=== PATIENT | female | born 1985 | race Two or more races ===

== ENCOUNTER 2020-11-04 14:57 | Emergency (ER) | payer MEDICAID, OTHER ==
[~2020-11-04] VITALS: Ht 154.9 cm; Wt 71.2 kg
[2020-11-04 16:18] LABS: Urine Bacteria FEW /hpf (None Seen); Urine Blood Negative /uL (Negative); Urine Hyaline Cast FEW /lpf (0 - 2); Urine Mucus FEW (None Seen); Urine Specific Gravity 1.025 (1.001-1.035); Urine WBC 4 /hpf (0 - 5)
[2020-11-04 18:00] VITALS: BP 143/99
[2020-11-04] MEDS ORDERED: methylPREDNISolone SOD SUCC 125 MG/2 ML VL IV ONE (18:30)
[2020-11-04] MEDS ORDERED: diphenhdrAMINE HCL 50 MG/1 ML VL IM ONE (18:30)
== END 2020-11-04 18:34 | disposition home or self-care (01) ==
LOC: ER 14:57
DX: N39.0 Urinary tract infection, site not specified (principal); L25.9 Unspecified contact dermatitis, unspecified cause
CPT/HCPCS: 81001; 96372; 96374; 99283; J1200; J2930

== ENCOUNTER 2022-12-09 17:49 | Emergency (ER) | payer MEDICAID ==
[~2022-12-09] VITALS: Ht 154.9 cm; Wt 60.4 kg
[2022-12-09 18:53] LABS: Basophils # (auto) 0 10 ^3/uL (0-0.2); Eosinophils # (auto) 0.1 10 ^3/uL (0-0.8); Monocytes # (auto) 0.7 10 ^3/uL (0-1.3)
[2022-12-09 18:54] LABS: Alanine Aminotransferase 12 U/L (7-40); Albumin 4.5 g/dL (3.2-4.8); Alkaline Phosphatase 79 U/L (46-116); Anion Gap 6.3 (5-15); Aspartate Aminotransferase < 8 U/L (13-40); BUN/Creatinine Ratio 18.8 (10.0-20.0); Bilirubin, Total 0.3 mg/dL (0.2-1.0); Blood Urea Nitrogen 13 mg/dL (9-23); Calcium 9.6 mg/dL (8.5-10.1); Carbon Dioxide 24.7 mmol/L (20-30); Chloride 104 mmol/L (98-107); Glucose 99 mg/dL (74-106); Sodium 135 mmol/L (136-145); Total Protein 7.8 g/dL (5.7-8.2)
[2022-12-09 18:58] LABS: Basophils % (auto) 0.5 % (0.0-2.0); Eosinophils % (auto) 1.3 % (0.0-7.0); Hematocrit 36.3 % (36.0-46.0); Hemoglobin 12.2 g/dL (12.2-16.2); Lymphocytes # (auto) 1.7 10 ^3/uL (0.4-5.4); Lymphocytes % (auto) 30.8 % (10.0-50.0); Mean Corpuscular Hemoglobin 26.5 pg (28.0-32.0); Mean Corpuscular Hgb Conc. 33.7 g/dL (32.0-36.0); Mean Corpuscular Volume 78.8 fL (80.0-100.0); Monocytes % (auto) 12.3 % (0.0-12.0); Neutrophils % (auto) 55.1 % (37.0-80.0); Nucleated Red Blood Cells % 0.1 %; Red Blood Cells 4.61 10^6/uL (4.0-5.20); Red Cell Distribution Width 16.5 % (11.8-14.3); White Blood Cell 5.5 10^3/uL (4.4-10.8)
[2022-12-09 19:23] LABS: Urine Bacteria FEW /hpf (None Seen); Urine Blood Negative /uL (Negative); Urine Clarity Clear (Clear); Urine Color Yellow (Yellow); Urine Protein, UAD Negative (Negative); Urine Specific Gravity 1.026 (1.001-1.035); Urine Urobilinogen Normal (Negative); Urine WBC <1 /hpf (0 - 5); Urine pH 6.5 (5.0-8.0)
[2022-12-09 22:04] VITALS: BP 149/87; PULSE 79; RESP 18; TEMP 98; O2SAT 98
== END 2022-12-09 22:11 | disposition home or self-care (01) ==
LOC: ER 17:49
DX: O20.0 Threatened abortion (principal); Z3A.01 Less than 8 weeks gestation of pregnancy; Z98.890 Other specified postprocedural states
CPT/HCPCS: 36415; 76801; 80053; 81001; 84702; 85025

== ENCOUNTER 2023-09-05 08:45 | Emergency (ER) | payer MEDICAID ==
[~2023-09-05] VITALS: Ht 152.4 cm; Wt 61.8 kg
[2023-09-05 09:12] VITALS: BP 148/88; PULSE 98; RESP 18; O2SAT 98
[2023-09-05 10:35] VITALS: TEMP 98
[2023-09-05] MEDS: ACETAMINOPHEN 500 MG TAB PO ONE (10:35)
[2023-09-05] MEDS ORDERED: AMOX875T3 PO (10:42)
[2023-09-05] MEDS ORDERED: CYCL-839 PO (10:42)
== END 2023-09-05 10:47 | disposition home or self-care (01) ==
LOC: ER 08:45
DX: R68.84 Jaw pain (principal); H66.92 Otitis media, unspecified, left ear
CPT/HCPCS: 70110

== ENCOUNTER 2024-07-15 17:06 | Emergency (ER) | payer MEDICAID ==
[~2024-07-15] VITALS: Ht 154.9 cm; Wt 61.8 kg
[~2024-07-15 17:06] MED LIST: AMOX875T3 PO; CYCL-839 PO
[2024-07-15 18:40] VITALS: BP 143/92; PULSE 103; RESP 18; TEMP 98.7; O2SAT 98
--- NOTE | 2024-07-15 18:46 | ED.PDOC ---
Eye-HPI HPI Comments This is a 38-year-old female chief complaint BILateral ear pain since thursday rt >left with swelling under ear rt cuirrently taking abx on 2nd round. Placed on antibiotics by urgent care. Denies hearing changes, fevers, chills, nausea or vomiting reports no dizziness chest pain shortness breath or difficulty breathing. Chief Complaint: Earache Time Seen by MD: 17:55 Primary Care Provider: DAIGLE Reviewed Notes: Nurses Notes, Medications, Allergies Allergies: Coded Allergies: Methylprednisolone (Verified Allergy, Intermediate, NAUSEA, 07/15/24) Azithromycin (Verified Allergy, Unknown, 07/15/24) Ceftriaxone (Verified Allergy, Unknown, 07/15/24) No Known Drug Allergy (Verified Allergy, Unknown, 11/04/20) Home Meds Active Scripts Cyclobenzaprine Hcl (Cyclobenzaprine Hcl) 10 Mg Tab, 10 MG PO BID, #20 TAB Prov:ELIJAH MALHOTRA 09/05/23 Amoxicillin Trihydrate (Amoxicillin) 875 Mg Tab, 1 TAB PO BID, #20 TAB Prov:ELIJAH MALHOTRA 09/05/23 Information Source: Patient Mode of Arrival: Ambulatory Past Medical History PAST MEDICAL HISTORY: Denies Surgical History: , Denies all surgeries 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 Family History Family History: Reviewed,noncontributory to illness Social History Smoker: Non-Smoker Alcohol: Denies ETOH Use Drugs: Denies Drug Use Lives In: Home Constitutional: denies: chills, diaphoresis, fatigue, fever, malaise, sweats, weakness, others EENTM: reports: eye pain; denies: blurred vision, double vision, ear bleeding, ear discharge, ear drainage, ear pain, ear ringing, eye redness, hearing loss, mouth pain, mouth swelling, nasal discharge, nose bleeding, nose congestion, nose pain, photophobia, tearing, throat pain, throat swelling, voice changes, others Respiratory: denies: cough, hemoptysis, orthopnea, SOB at rest, shortness of breath, SOB with excertion, stridor, wheezing, others Cardiovascular: denies: chest pain, dizzy spells, diaphoresis, Dyspnea on exertion, edema, irregular heart beat, left arm pain, lightheadedness, palpitations, PND, syncope, others Gastrointestinal: denies: abdomen distended, abdominal pain, blood streaked bowels, constipated, diarrhea, dysphagia, difficulty swallowing, hematemesis, melena, nausea, poor appetite, poor fluid intake, rectal bleeding, rectal pain, vomiting, others Genitourinary: denies: abnormal vagina bleeding, burning, dyspareunia, dysuria, flank pain, frequency, hematuria, incontinence, pain, , vagina discharge, urgency, others Neurological: denies: dizziness, fainting, headache, left sided numbness, left sided weakness, numbness, paresthesia, pre-existing deficit, right sided numbness, right sided weakness, seizure, speech problems, tingling, tremors, weakness, others Musculoskeletal: denies: back pain, gout, joint pain, joint swelling, muscle pain, muscle stiffness, neck pain, others Integumetry: denies: bruises, change in color, change in hair/nails, dryness, laceration, lesions, lumps, rash, wounds, others Allergic/Immunocompromised: denies: Difficulty Healing, Frequent Infections, Hives, Itching, others Hematologic/Lymphatic: reports: swollen glands; denies: anemia, blood clots, easy bleeding, easy bruising, others Endocrine: denies: excessive hunger, excessive sweating, excessive thirst, excessive urination, flushing, intolerance to cold, intolerance to heat, unexpla ined weight gain, unexplained weight loss, others Psychiatric: denies: anxiety, bipolar disorder, depression, hopeless, panic disorder, schizophrenia, sleepless, suicidal, others Physical Exam General Appearance: No Apparent Distress, Normal HEENT: Normal ENT Inspection, Pharynx Normal, TMs Normal Neck: Full Range of Motion, Non-Tender Respiratory: Lungs Clear, No Respiratory Distress, Normal Breath Sounds Cardiovascular: No Edema, No JVD, No Murmur, No Gallop, Normal Peripheral Pulses, Regular Rate/Rhythm Breast Exam: Deferred Gastrointestinal: No Organomegaly, Non Tender, No Pulsatile Mass, Normal Bowel Sounds, Soft Genitalia: Deferred Pelvic: Deferred Rectal: Deferred Extremities: Normal capillary refill, Normal inspection, Normal range of motion, Non-tender, No pedal edema Musculoskeletal : Apperance: Normal Neurologic: Alert, scale technician II-XII nml as Tested, No Motor Deficits, Normal Affect, Normal Mood, No Sensory Deficits Cerebellar Function: Normal Reflexes: Normal Skin: Dry, Normal Color, Warm Lymphatic: Other (Preauricular lymph nodes tenderness no warmth non matted) Was a procedure done? Was a procedure done?: No EENT DIFF Eye: N/A Ear: Cerumen Impaction, Foreign Body, Otitis Externa, Otitis Media, Perforation, Dental, Pharyngitis X-Ray, Labs, Meds, VS Vital Signs Date Time Temp Pulse Resp B/P (MAP) Pulse Ox O2 Delivery O2 Flow Rate FiO2 07/15/24 18:40 98.7 103 18 143/92 (109) 98 98.7 07/15/24 18:40 103 18 98 Room Air 07/15/24 17:30 98.7 103 18 143/92 (109) 98 98.7 X-Ray, Labs, Meds, VS Comment Patient advised to continue and complete the antibiotics prescribed by urgent care. Advised to use warm compresses to her the lymph nodes several times a day. Also advised patient that the lymph nodes may remain for some time up to at least 3 months after infection has resolved. Advised her to obtain a PCP and follow up 2-3 days or urgent care or back here in the ER. Take medications as prescribed side effects discussed. [id number] Tylenol or Motrin as needed for the pain per labeled dosing instructions. ER return precautions given patient indicates understanding agrees with discharge plan of care. Time of 1ST Reevaluation: 18:41 Reevaluation 1ST: Unchanged Patient Education/Counseling: Diagnosis, Treatment, Prognosis, Need For Follow Up Family Education/Counseling: No Family Present Departure 1 Departure Time of Disposition: 19:41 Impression: Primary Impression: Preauricular adenopathy Disposition: 01 HOME / SELF CARE / HOMELESS Condition: Stable Discharged With: Self Critical Care Note Critical Care Time?: No Stability Stability form required: AUBREY Mo Jul 15, 2024 18:46
== END 2024-07-15 19:56 | disposition home or self-care (01) ==
LOC: ER 17:06
DX: Q18.1 Preauricular sinus and cyst (principal); Z88.1 Allergy status to other antibiotic agents
CPT/HCPCS: 36415

== ENCOUNTER 2024-07-17 18:17 | Emergency (ER) | payer MEDICAID ==
[~2024-07-17] VITALS: Ht 154.9 cm; Wt 63.5 kg
--- NOTE | 2024-07-17 18:47 | ED.PDOC ---
History of Present Illness HPI Comments 38-year-old female with no reported PMHx presents with a chief complaint of face pain. Patient states that she started symptoms on Thursday where she was told that she had an ear infection and was given antibiotics. Patient reports that she was told that if she was not getting better to come back to the ER. She reports associated neck pain, facial swelling. She reports chronic history of nystagmus. Patient is currently . Time Seen by MD: 18:24 Primary Care Provider: PILO Burgess Notes: Medications, Allergies Allergies: Coded Allergies: Methylprednisolone (Verified Allergy, Intermediate, NAUSEA, 07/15/24) Azithromycin (Verified Allergy, Unknown, 07/15/24) Ceftriaxone (Verified Allergy, Unknown, 07/15/24) No Known Drug Allergy (Verified Allergy, Unknown, 11/04/20) Home Meds Active Scripts Cyclobenzaprine Hcl (Cyclobenzaprine Hcl) 10 Mg Tab, 10 MG PO BID, #20 TAB Prov:ELIJAH MALHOTRA 09/05/23 Amoxicillin Trihydrate (Amoxicillin) 875 Mg Tab, 1 TAB PO BID, #20 TAB Prov:ELIJAH MALHOTRA 09/05/23 Information Source: Patient Mode of Arrival: Ambulatory Severity: Moderate Timing: Days Duration: Since onset Prehospital treatment: None Vital Signs Vital Signs Date Time Temp Pulse Resp B/P (MAP) Pulse Ox O2 Delivery O2 Flow Rate FiO2 07/17/24 23:45 98.1 07/17/24 21:21 89 19 127/89 (102) 97 Physical Exam General: Awake, alert and oriented. No acute distress. Skin: Skin in warm, dry and intact. Appropriate color for ethnicity. HEENT: The head is normocephalic and atraumatic. Conjunctivae are clear without exudates or hemorrhage. Sclera is non-icteric. EOM are intact. Positive nystagmus. Eyelids are normal in appearance without swelling or lesions. Oral mucosa is pink and moist. Swelling, tenderness anterior to right ear. No overlying skin changes, no erythema, induration, fluctuance. No erythema, bulging of bilateral TMs. No swelling, discharge and bilateral external canals. Neck: The neck is supple with normal range of motion. No neck tenderness. No JVD. Cardiac: Heart rate and rhythm are normal. No murmurs, gallops, or rubs are auscultated. Respiratory: No signs of respiratory distress. Lung sounds are clear in all lobes bilaterally without rales, rhonchi, or wheezes. Abdominal: Abdomen is soft, non-tender without distention. Bowel sounds are present and normoactive in all four quadrants. Extremities: Upper and lower extremities are atraumatic in appearance without deformity or edema. Neurological: The patient is awake, alert and oriented to person, place, and time with normal speech. Speech is clear. There is no facial asymmetry. Psychiatric: Appropriate mood and affect. Good judgement and insight. 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 Was a procedure done?: No Differential Dx Considerations may include: Sialoadenitis, meningitis, migraine, sinusitis, mastoiditis, headache, other X-Ray, Labs, Meds, VS Vital Signs Date Time Temp Pulse Resp B/P (MAP) Pulse Ox O2 Delivery O2 Flow Rate FiO2 07/17/24 23:45 98.1 07/17/24 21:52 98.6 07/17/24 21:21 98.9 89 19 127/89 (102) 97 98.9 07/17/24 18:33 98.7 94 16 146/99 (115) 98 98.7 Lab Test 07/17/24 22:21 07/17/24 18:57 Range/Units Urine Color Light-yellow Yellow Urine Clarity Clear Clear Urine pH 6.0 5.0-9.0 Urine Specific [place] > 1.050 H 1.001-1.035 Urine Protein Negative Negative Urine Ketones Negative Negative Urine Blood Negative Negative /uL Urine Nitrite Negative Negative Urine Bilirubin Negative Negative Urine Urobilinogen Normal Negative mg/dL Urine Leukocyte Esterase Negative Negative /uL Urine RBC <1 0 - 4 /hpf Urine Microscopic WBC 4 0-5 /HPF Urine Squamous Epithelial Cells Few <5 /hpf Urine Bacteria None seen None Seen /hpf Urine Mucus Few None Seen Urine Glucose Normal Normal mg/dL White Blood Count 9.4 4.4-10.8 10^3/uL Red Blood Count 4.74 4.0-5.20 10^6/uL Hemoglobin 13.9 12.2-16.2 g/dL Hematocrit 40.8 36.0-46.0 % Mean Corpuscular Volume 86.0 80.0-100.0 fL Mean Corpuscular Hemoglobin 29.4 28.0-32.0 pg Mean Corpuscular Hemoglobin Concent 34.2 32.0-36.0 g/dL Red Cell Distribution Width 13.3 11.8-14.3 % Platelet Count 314 140-450 10^3/uL Mean Platelet Volume 7.6 6.9-10.8 fL Neutrophils (%) (Auto) 77.8 37.0-80.0 % Lymphocytes (%) (Auto) 15.8 10.0-50.0 % Monocytes (%) (Auto) 5.7 0.0-12.0 % Eosinophils (%) (Auto) 0.4 0.0-7.0 % Basophils (%) (Auto) 0.3 0.0-2.0 % Neutrophils # (Auto) 7.3 1.6-8.6 10 ^3/uL Lymphocytes # (Auto) 1.5 0.4-5.4 10 ^3/uL Monocytes # (Auto) 0.5 0-1.3 10 ^3/uL Eosinophils # (Auto) 0 0-0.8 10 ^3/uL Basophils # (Auto) 0 0-0.2 10 ^3/uL Nucleated Red Blood Cells 0.1 % Sodium Level 137 136-145 mmol/L Potassium Level 3.5 3.5-5.1 mmol/L Chloride Level 104 98-107 mmol/L Carbon Dioxide Level 26 20-31 mmol/L Anion Gap 7 5-15 Blood Urea Nitrogen 11 9-23 mg/dL Creatinine 0.64 0.550-1.02 mg/dL Glomerular Filtration Rate Calc 117 >90 mL/min BUN/Creatinine Ratio 17.2 10.0-20.0 Serum Glucose 105 74-106 mg/dL Calcium Level 9.9 8.7-10.4 mg/dL Total Bilirubin 0.4 0.2-1.0 mg/dL Aspartate Amino Transferase (AST) 16 13-40 U/L Alanine Aminotransferase (ALT) 24 7-40 U/L Alkaline Phosphatase 109 46-116 U/L C-Reactive Protein High Sensitivity 0.21 <1.0 mg/dL Total Protein 8.4 H 5.7-8.2 g/dL Albumin 4.8 3.2-4.8 g/dL Current Medications Medications (Trade) Dose Ordered Sig/Vee Route Start Time Stop Time Status Last Admin Ketorolac Tromethamine (Toradol Injection) 15 mg ONCE ONCE IV 07/17/24 19:00 07/17/24 19:01 DC 07/17/24 21:53 Sodium Chloride 1,000 ml @ 1,000 mls/hr Q1H ONCE IV 07/17/24 19:00 07/17/24 19:59 DC 07/17/24 21:53 Acetaminophen (Tylenol Tablet) 650 mg ONCE ONCE PO 07/17/24 19:00 07/17/24 19:01 DC 07/17/24 21:52 Time of 1ST Reevaluation: 18:54 Reevaluation 1ST: Unchanged Patient Education/Counseling: Need For Follow Up Family Education/Counseling: No Family Present Departure 1 Departure Time of Disposition: 00:50 Impression: Primary Impression: Headache Additional Impression: Lymphadenopathy Disposition: 01 HOME / SELF CARE / HOMELESS Condition: Stable Additional Instructions: IN[employer]IONES DE [place] Urgencias Instrucciones: Blanca atentamente todas las instrucciones proporcionadas en aleksey paquete. Aunque le hayan dado el am[place] del Departamento de Emergencias, esto no significa que tenga un "certificado de buena john". [] Hoy no se cuevas realizado ningn diagnstico definitivo para kita sntomas. Es posible que ests en proceso de desarrollar stef enfermedad grave. Es por eso que debe regresar al servicio de urgencias sin falta si presenta algn sntoma nuevo o que empeora (especialmente si kita sntomas incluyen dolor en el pecho, dificultad para respirar, dolor abdominal, fiebre, dolor de jaspreet, confusin, dificultad para krishna o caminar). Tambin es muy importante que consulte a un mdico de atencin primaria dentro de los prximos 3 a 5 boyer para realizar un seguimiento. Si no puede conseguir stef reynaldo, regrese al servicio de urgencias para stef nueva evaluacin. Dolor de jaspreet: Instrucciones de cuidado Descripcin general Los clair de jaspreet tienen muchas causas posibles. La mayora no son sntoma de un problema ms grave y mejoran por s solos. El tratamiento en casa puede ayudarle a sentirse mejor ms rpido. El mdico lo cuevas examinado cuidadosamente, elizabeth podran surgir problemas ms adelante. Si nota algn problema o sntomas nuevos, busque atencin mdica de inmediato . El seguimiento es fundamental para henao tratamiento y seguridad. Asegrese de programar y acudir a todas kita citas, y llame a henao mdico si tiene algn prob burak. Tambin es recomendable estar al tanto de los resultados de kita pruebas y llevar stef lista de los medicamentos que zion. Physiatrist puedes cuidarte en casa? Descanse en stef habitacin tranquila y oscura hasta que se le pase el dolor de jaspreet. Cierre los ojos e intente relajarse o dormir. No angela la televisin ni blanca. Aplique un valentine fro y hmedo o stef compresa fra sobre la henry dolorida arturo 10 a 20 minutos cada vez. Coloque un valentine fay entre la compresa fra y la piel. Utilice stef toalla tibia y hmeda o stef almohadilla trmica a temperatura baja para relajar los msculos tensos de los hombros y el asia. Pdale a alguien que le masajee suavemente el asia y los hombros. Hilham los analgsicos exactamente arie se lo indiquen. Si el mdico le recet un medicamento para el dolor, tmelo segn lo prescrito. Si no est tomando un analgsico recetado, pregntele a henao mdico si puede blanche gissel de venta dalia. No ignore los sntomas nuevos que se presenten junto con el dolor de jaspreet, arie fiebre, debilidad o entumecimiento, cambios en la visin o confusin. Estos podran ser indicios de un problema ms grave. Para prevenir clair de jaspreet Lleva un diario de tus clair de jaspreet para identificar kita desencadenantes. Evitar los desencadenantes puede ayudarte a prevenirlos. Registra cundo comenz cada dolor, cunto dur y customer service and sales consultant fue (pulstil, sordo, punzante o sordo). Anota cualquier otro sntoma que hayas tenido junto con el dolor de jaspreet, arie nuseas, destellos de samantha o manchas oscuras, o sensibilidad a la samantha brillante o a ruidos chuckie. Anota si el dolor de jaspreet se produjo cerca de tu periodo. Anota cualquier cosa que pudiera haberlo desencadenado, arie ciertos alimentos (chocolate, queso, vino) u olores, humo, samantha brillante, estrs o falta de sueo. Encuentra maneras saludables de lidiar con el estrs. Los clair de jaspreet son ms comunes arturo o liset despus de momentos estresantes. Tmate un tiempo para relajarte antes y despus de hacer algo que te haya causado dolor de jaspreet. Intenta mantener los msculos relajados manteniendo stef buena postura. Revisa la mandbula, la suly, el asia y los hombros para detectar tensin e intenta relajarlos. Al sentarte en un escritorio, cambia de posicin con frecuencia y estrate arturo 30 segundos cada hora. Duerma lo suficiente y fiona ejercicio. Come con regularidad. Perodos prolongados sin comer pueden provocar dolor de ca nik. Limita la cafena evitando beber demasiado caf, t o refrescos. Elizabeth no la dejes de golpe, ya que tambin puede causarte dolor de jaspreet. Reduce la fatiga visual causada por la computadora parpadeando con frecuencia y apartando la vista de la pantalla de vez en cuando. Asegrate de usar gafas adecuadas y de que el monitor est correctamente colocado, a stef distancia de aproximadamente un brazo. Cundo debes pedir ayuda? Llame al 911 en cualquier momento que considere que necesita atencin de emergen yuan. Por ejemplo, llame si: Tienes sntomas de un derrame cerebral. Estos pueden incluir: Entumecimiento repentino, parlisis o debilidad en la suly, el brazo o la pierna, especialmente en un solo lado del cuerpo. Cambios repentinos en la visin. Dificultad repentina para hablar. Confusin repentina o dificultad para comprender afirmaciones sencillas. Problemas repentinos con la marcha o el equilibrio. Un dolor de jaspreet repentino y sam que es diferente a los clair de jaspreet anteriores. Llame a henao mdico ahora o busque atencin mdica inmediata si: Tienes fiebre y rigidez en el asia. Tiene nuseas y vmitos nuevos o no puede retener alimentos o lquidos. Tu dolor de jaspreet empeora mucho. Preste atencin a los cambios en henao john y asegrese de comunicarse con henao mdico si: Kita clair de jaspreet empeoran, ocurren con ms frecuencia o cambian de alguna manera. Tienes nuevos sntomas. Tu orville se ve alterada por tus clair de jaspreet. Por ejemplo, sueles faltar al trabajo, a la escuela o a otras actividades. No mejoras arie esperabas Crditos para el dolor de jaspreet: Instrucciones de cuidado Actualizado al: 3 2023 Autor: Personal de [employer] Junta de revisin clnica Toda la educacin de [employer] es revisada por un equipo que incluye mdicos, enfermeras, profesionales avanzados, dietistas registrados y otros profesionales de la john. Instrucciones de cuidado Los ganglios linfticos son pequeas glndulas con forma de frijol que se encuentran en todo el cuerpo. Ayudan al cuerpo a combatir grmenes e infecciones. La linfadenitis es la inflamacin de un ganglio linftico. Puede ser causada por stef infeccin u otra afeccin. La infeccin suele localizarse en stef parte cercana del cuerpo. Un ejemplo comn son los bultos a ambos lados del asia, debajo de la mandbula, que se vuelven sensibles y ms grandes cuando se tiene un resfriado o dolor de garganta. En ocasiones, el propio ganglio linftico puede estar infectado. Por lo general, los ganglios linfticos inflamados recuperan henao tamao normal sin problemas. El tratamiento, si es necesario, se centra en tratar la causa. Por ejemplo, stef infeccin bacteriana puede tratarse con antibiticos. [place] debera restaurar el tamao normal del ganglio. Stef infeccin viral suele desaparecer por s cisco. En casos excepcionales, es posible que el mdico deba drenar un ganglio muy infectado. El seguimiento es fundamental para henao tratamiento y seguridad. Asegrese de programar y acudir a todas kita citas, y llame a henao mdico si tiene algn problema. Tambin es recomendable estar al tanto de los resultados de kita pruebas y llevar stef lista de los medicamentos que zion. Physiatrist puedes cuidarte en casa? Tenga cuidado con los medicamentos. Si henao mdico le recet antibiticos, tmelos segn las indicaciones. No los deje de blanche solo porque se sienta mejor. Debe completar el tratamiento con antibiticos. Pregntele a henao mdico si puede blanche un analgsico de venta dalia, arie acetaminofn (Tylenol), ibuprofeno (Advil, Motrin) o naproxeno (Aleve). Blanca y siga todas las instrucciones de la etiqueta. Si siente dolor, pruebe con stef compresa tibia. Empape stef toalla o valentine en agua tibia. Escrralo y colquelo sobre la piel afectada. No apriete, drene ni perfore un bulto doloroso. [place] puede irritarlo o inflamarlo, hacer que la infeccin existente se profundice en la piel o causar sangrado intenso. Cundo debes pedir ayuda? Llame a henao mdico ahora o busque atencin mdica inmediata si: Kita ganglios linfticos se agrandan. La henry se enrojece y se siente ms sensible. Tienes fiebre que no desaparece. Preste atencin a los cambios en henao john y asegrese de comunicarse con henao mdico si: No mejoras arie esperabas Crditos para la linfadenitis: Instrucciones de cuidado Actualizado al: 27 2023 Autor: Personal de [employer] Junta de revisin clnica Toda la educacin de [employer] es revisada por un equipo que incluye mdicos, enfermeras, profesionales avanzados, dietistas registrados y otros profesionales de la john. Comments 38-year-old female with bilateral ear pain, headache, lymphadenopathy. Patient is well-appearing, nontoxic. Patient's symptoms improved during the ED observation. Vital signs stable. Lab and imaging results reviewed and are not urgently actionable. Patient is felt stable for discharge home. Patient advised to follow up with primary care provider promptly and return to the emergency department with any new, worsening or concerning symptoms. - I reviewed the following notes from the pt's past medical encounters: ED visit July 09, 2024 The following tests were ordered, and results were reviewed by me: (See diagnostic results section) The following test were independently interpreted by me: N/A Additional information was gathered from interviewing the following independent historians: (N/A) I reviewed and agreed with the following test results read by other providers: N/A I discussed treatments and results with medical personnel and patient. Decision regarding hospitalization or escalation of hospital level of care: Risks and benefits of admission for further treatment of patient's condition was considered however due to patient's stable condition patient will be discharged to follow up closely or return to care for worsening of condition or inability to follow up. Critical Care Note Critical Care Time?: No Stability Stability form required: No Heart Score Heart Score: Heart Score Response (Comments) Value History N/A 0 EKG N/A 0 Age N/A 0 Risk Factors N/A 0 Troponin N/A 0 Total 0 I personally scribed for RONY DELATORRE MD ([email or web address]) on 07/17/24 at 18:47. Electronically submitted by Dago Rand ([email or web address]). RONY DELATORRE MD Jul 17, 2024 18:47
[2024-07-17 19:32] LABS: Basophils # (auto) 0 10 ^3/uL (0-0.2); Basophils % (auto) 0.3 % (0.0-2.0); Eosinophils # (auto) 0 10 ^3/uL (0-0.8); Eosinophils % (auto) 0.4 % (0.0-7.0); Hematocrit 40.8 % (36.0-46.0); Hemoglobin 13.9 g/dL (12.2-16.2); Lymphocytes # (auto) 1.5 10 ^3/uL (0.4-5.4); Lymphocytes % (auto) 15.8 % (10.0-50.0); Mean Corpuscular Hemoglobin 29.4 pg (28.0-32.0); Mean Corpuscular Hgb Conc. 34.2 g/dL (32.0-36.0); Monocytes # (auto) 0.5 10 ^3/uL (0-1.3); Monocytes % (auto) 5.7 % (0.0-12.0); Neutrophils # (auto) 7.3 10 ^3/uL (1.6-8.6); Neutrophils % (auto) 77.8 % (37.0-80.0); Nucleated Red Blood Cells % 0.1 %; Platelet Count (auto) 314 10^3/uL (140-450); Red Blood Cells 4.74 10^6/uL (4.0-5.20); Red Cell Distribution Width 13.3 % (11.8-14.3); White Blood Cell 9.4 10^3/uL (4.4-10.8)
[2024-07-17 19:45] LABS: Alanine Aminotransferase 24 U/L (7-40); Alkaline Phosphatase 109 U/L (46-116); Anion Gap 7 (5-15); Aspartate Aminotransferase 16 U/L (13-40); BUN/Creatinine Ratio 17.2 (10.0-20.0); Blood Urea Nitrogen 11 mg/dL (9-23); CRP High Sensitivity 0.21 mg/dL (<1.0); Calcium 9.9 mg/dL (8.7-10.4); Carbon Dioxide 26 mmol/L (20-31); Chloride 104 mmol/L (98-107); Glucose 105 mg/dL (74-106); Potassium 3.5 mmol/L (3.5-5.1); Sodium 137 mmol/L (136-145)
[2024-07-17 19:46] LABS: Albumin 4.8 g/dL (3.2-4.8); Bilirubin, Total 0.4 mg/dL (0.2-1.0); Total Protein 8.4 g/dL (5.7-8.2)
[2024-07-17 21:21] VITALS: BP 127/89; PULSE 89; RESP 19; O2SAT 97
[2024-07-17] MEDS: IOHEXOL 300 MG/ML 100ML BOTTLE IJ ONE (21:52)
[2024-07-17] MEDS: ACETAMINOPHEN 325 MG TAB PO ONE (21:52)
[2024-07-17] MEDS: KETOROLAC TROMETH 30 MG/ML 1ML VIAL IV ONE (21:53)
[2024-07-17] MEDS: SODIUM CHLORIDE 0.9% 1,000 ML IV ONE (21:53)
[2024-07-17 22:21] LABS: Urine Bacteria None Seen /hpf (None Seen)
[2024-07-17 22:35] LABS: Urine Blood Negative /uL (Negative); Urine Clarity Clear (Clear); Urine Color Light-Yellow (Yellow); Urine Mucus FEW (None Seen); Urine Protein, UAD Negative (Negative); Urine Squamous Epithelial Cell FEW /hpf (<5); Urine Urobilinogen Normal (Negative); Urine WBC 4 /HPF (0-5)
[2024-07-17 22:38] LABS: Urine Specific Gravity > 1.050 (1.001-1.035)
--- NOTE | 2024-07-17 22:46 | DVH ---
Examination: HWOCT CLINICAL INDICATION: B/L ear pain, R facial swelling, MORALES COMPARISON: None. CONTRAST USED: None. TECHNIQUE: The examination was performed obtaining 5 mm slices without contrast. CT scan done accor ding to ALA (As Low as Reasonably Achievable). Multiplanar reconstructions were obtained. FINDINGS: SUPRATENTORIAL BRAIN: CEREBRAL HEMISPHERES: There is no midline shift or mass effect, intra or extra-axial fluid collection s or hemorrhage. PERIVENTRICULAR WHITE MATTER/BASAL GANGLIA: No abnormal areas of altered attenuation within the periv entricular white matter or basal ganglia. POSTERIOR FOSSA: The brainstem is normal and the visualized cerebellar hemispheres are unremarkable. VENTRICULAR SYSTEM: The ventricular system is normal in size. There is no evidence of hydrocephalus o r transependymal flow of cerebrospinal fluid. SKULL BASE AND PARASELLAR REGION: The skull base is normal with no parasellar masses or abnormalities identified. CALVARIUM AND SCALP REGION: No abnormality is seen. PARANASAL SINUSES: No significant inflammatory changes are identified in the paranasal sinuses. IMPRESSION: 1. No parenchymal hemorrhage or acute territorial infarct noted. 2. No acute skull vault or facial bones fracture or dislocation noted. 3. Clinical correlation and further evaluation with MRI brain is recommended for better evaluation a nd to rule out hyperacute infarct. Electronically Signed 07/17/2024 22:44 Kathleen Anguiano
[2024-07-17 23:45] VITALS: TEMP 98.1
--- NOTE | 2024-07-17 23:48 | DVH ---
Examination: [facility] CLINICAL INDICATION: ;B/L ear pain, R facial swelling, MORALES COMPARISON: None. CONTRAST USED: Intravenous. TECHNIQUE: Transaxial Helical CT Scan of the neck has been performed without and with contrast under quiet breathing. Technique for this CT scan was done using principles of ALARA (As Low As Reasonabl y Achievable). FINDINGS: Nasopharynx and Oropharynx: The naso and oropharyngeal air space is normal. The eustachian tube opening, torus tubarius, and fossa of Rosenm�ller are normal and do not show an y mass. Muscles: The pterygoid muscles, masseter, and temporalis muscles are normal. Both sternocleidomastoid muscles are normal. Parapharyngeal Space: The parapharyngeal space shows normal position and density and fat within. Vascular Structures: The carotid and jugular vessels show normal contrast opacification and position . Salivary Glands: Both parotid glands show normal density within. Both submandibular glands are normal. Larynx: The larynx shows normal vocal cord within. No evidence of any supraglottic or infraglottic mass lesion. The paralaryngeal space, pyriform fossa, vallecula, and epiglottis are normal. No obvious mass in the post cricoid region noted. Thyroid: A 10.5 mm nodule is seen at the junction of the left lobe and isthmus of the thyroid, infer iorly. Lymph Nodes: Small bilateral intraparotid lymph nodes are seen. Small ovoid and non-necrotic, bilateral cervical lymph nodes are seen, with the largest measuring 17 x 6 mm at the right level IB. Spine: There is mild dextroscoliosis of the cervical spine. Additional Findings: Small bilateral tonsilloliths are seen. IMPRESSION: 1. A 10.5 mm nodule at the junction of the left lobe and isthmus of the thyroid, inferiorly. Ultras ound correlation is needed. 2. Small ovoid Non-necrotic bilateral cervical and intraparotid lymph nodes. Electronically Signed 07/17/2024 23:46 Kathleen Anguiano
== END 2024-07-18 01:23 | disposition home or self-care (01) ==
LOC: ER 18:17
DX: R51.9 Headache, unspecified (principal); R59.1 Generalized enlarged lymph nodes; Z79.899 Other long term (current) drug therapy; Z88.8 Allergy status to other drugs, medicaments and biological substances; Z88.1 Allergy status to other antibiotic agents
CPT/HCPCS: 36415; 70450; 70492; 80053; 81001; 85025; 86141; 96361; 96374; 99285; J1885; J7030; Q9967

== ENCOUNTER 2024-11-12 21:06 | Emergency (ER) | payer MEDICAID ==
[~2024-11-12] VITALS: Ht 154.9 cm; Wt 65.9 kg
[2024-11-12] MEDS: SODIUM CHLORIDE 0.9% 1,000 ML IV ONE (22:00)
--- NOTE | 2024-11-12 22:35 | ED.PDOC ---
History of Present Illness HPI Comments 38-year-old female came to ER due to headaches. Patient states she has been having a constant, throbbing, occipital headache since 3:00 p.m.. Patient's self-medicated with Tylenol but offered no relief. Currently complaining of body pains, nausea and vomiting. Patient reports she has not had a headache this severe before. REVIEW OF SYSTEMS: No fever, no chills, or fatigue HEENT: No sore throat, no earache, no congestion, no neck pain. Cardiac: No chest pain. No palpitations. Lungs: No shortness of breath, no cough. GI: (+) nausea, (+) vomiting, no diarrhea, no constipation, no abdominal pain : No dysuria, frequency, or urgency. No hematuria. Musculoskeletal: No joint pain , no joint swelling, no extremity edema. Skin: No rash, no itching. Neuro: (+) headache, no dizziness, no weakness PHYSICAL EXAM: General: Awake, alert and oriented. No acute distress. Skin: Skin in warm, dry and intact without rashes or lesions. HEENT: The head is normocephalic and atraumatic. Conjunctivae are clear without exudates or hemorrhage. Sclera is non-icteric. Neck: Normal range of motion. No JVD. Cardiac: Regular rate Respiratory: No signs of respiratory distress. No Stridor. Extremities: Upper and lower extremities are atraumatic in appearance without deformity. Neurological: The patient is awake, alert and oriented to person, place, and time with normal speech. Speech is clear. There is no facial asymmetry. No upper or lower extremity drift. Normal oerbxi-tr-rbfm test. Normal gait. Psychiatric: Appropriate mood and affect. Good judgement and insight. Chief Complaint: Headache Time Seen by MD: 22:34 Primary Care Provider: DAIGLE Reviewed Notes: Nurses Notes Allergies: Coded Allergies: Methylprednisolone (Verified Allergy, Intermediate, NAUSEA, 07/15/24) Azithromycin (Verified Allergy, Unknown, 07/15/24) Ceftriaxone (Verified Allergy, Unknown, 07/15/24) No Known Drug Allergy (Verified Allergy, Unknown, 11/04/20) Home Meds Active Scripts Cyclobenzaprine Hcl (Cyclobenzaprine Hcl) 10 Mg Tab, 10 MG PO BID, #20 TAB Prov:ELIJAH MALHOTRA 09/05/23 Amoxicillin Trihydrate (Amoxicillin) 875 Mg Tab, 1 TAB PO BID, #20 TAB Prov:ELIJAH MALHOTRA 09/05/23 Information Source: Patient Mode of Arrival: Ambulatory Severity: Moderate Timing: Hours Duration: Since onset Past Medical History PAST MEDICAL HISTORY: Denies 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 Was a procedure done?: No Differential Dx Considerations may include: Differential diagnoses considered include but are not limited to temporal arteritis, acute angle closure glaucoma, encephalitis, bacterial meningitis, carbon monoxide poisoning, posttraumatic headache, SAH, subdural hematoma, cervi kathi artery dissection, venous sinus thrombosis, CVA, migraine headache, cluster headache, tension headache, TMJ disorder, frontal sinusitis, cervical spondylosis, intracranial mass, pituitary apoplexy. X-Ray, Labs, Meds, VS Vital Signs Date Time Temp Pulse Resp B/P (MAP) Pulse Ox O2 Delivery O2 Flow Rate FiO2 11/13/24 01:09 98.3 81 16 126/91 (103) 98 98.3 11/12/24 22:44 98.2 84 18 133/98 (110) 100 98.2 11/12/24 22:44 84 18 100 Room Air 11/12/24 21:08 98.1 99 18 154/104 99 98.1 Time of 1ST Reevaluation: 22:30 Reevaluation 1ST: Unchanged Patient Education/Counseling: Need For Follow Up Family Education/Counseling: No Family Present SEPSIS Sepsis Screen Date sepsis recognized/suspect: Nov 12, 2024 Time Sepsis recognized/suspect: 2110 Recent Procedure: No On Antibiotic Therapy: No Respiratory Rate >20: No Heart Rate >90: No Temp<36 C (96.8 F) or >38.3 C: No SBP <90 or MAP <65 mmHG: No New Acute Mental Status Change: No Is the patient on CPAP, BIPAP,: No Physician Orders Head Without Contrast (11/12/24 21:55) Vital Signs Date Time Temp Pulse Resp B/P (MAP) Pulse Ox O2 Delivery O2 Flow Rate FiO2 11/13/24 01:09 98.3 81 16 126/91 (103) 98 98.3 11/12/24 22:44 98.2 84 18 133/98 (110) 100 98.2 11/12/24 22:44 84 18 100 Room Air 11/12/24 21:08 98.1 99 18 154/104 99 98.1 Departure 1 Departure Time of Disposition: 00:48 Impression: Primary Impression: Headache Disposition: 01 HOME / SELF CARE / HOMELESS Condition: Stable Additional Instructions: [employer] [place] [employer] Urgencias Instrucciones: Blanca atentamente todas las instrucciones proporcionadas en aleksey paquete. Aunque le hayan dado el america del Departamento de Emergencias, esto no significa que tenga un "certificado de buena john". [] Hoy no se cuevas realizado ningn diagnstico definitivo para kita sntomas. Es posible que ests en proceso de desarrollar stef enfermedad grave. Es por eso que debe regresar al servicio de urgencias sin falta si presenta algn sntoma nuevo o que empeora (especialmente si kita sntomas incluyen dolor en el pecho, dificultad para respirar, dolor abdominal, fiebre, dolor de jaspreet, confusin, dificultad para krishna o caminar). Tambin es muy importante que consulte a un mdico de atencin primaria dentro de los prximos 3 a 5 boyer para realizar un seguimiento. Si no puede conseguir stef reynaldo, regrese al servicio de urgencias para stef nueva evaluacin. Dolor de jaspreet por migraa: instrucciones de cuidado Tabla de contenido Descripcin general Automotive Airconditioning Mechanic puedes cuidarte en casa? Cundo debes pedir ayuda? Crditos Descripcin general Las migraas son clair de jaspreet punzantes y dolorosos que suelen comenzar en un lado de la jaspreet. Pueden causar nuseas y vmitos y hacer que el paciente se vuelva sensible a la samantha, los sonidos o los olores. Sin tratamiento, las migraas pueden durar desde 4 horas hasta algunos boyer. Los medicamentos pueden ayudar a prevenir las migraas o detenerlas stef vez que hayan comenzado. Saab mdico puede ayudarlo a encontrar los que funcionan mejor para usted. El seguimiento mdico es stef parte fundamental de saab tratamiento y saab seguridad. Asegrese de programar y acudir a todas las citas, y llame a saab mdico si tiene problemas. Tambin es stef buena idea saber los resultados de kita pruebas y llevar stef lista de los medicamentos que zion. Automotive Airconditioning Mechanic puedes cuidarte en casa? No conduzca si cuevas tomado algn analgsico recetado. Descanse en stef habitacin tranquila y oscura hasta que desaparezca el dolor de jaspreet. Cierre los ojos e intente relajarse o dormir. No fabiano televisin ni blanca. Coloque un valentine hmedo y fro o stef compresa fra sobre la henry dolorida arturo 10 a 20 minutos cada vez. Coloque un valentine pippa entre la compresa fra y la piel. Utilice stef toalla tibia y hmeda o stef almohadilla trmica a temperatura baja para relajar los msculos tensos de los hombros y el asia. Pdale a alguien que le masajee suavemente el asia y los hombros. Ely kita medicamentos exactamente arie le hayan recetado. Llame a saab mdico si darren que tiene un problema con saab medicamento. Recibir ms detalles sobre los medicamentos especficos que le recete saab mdico. No tome medicamentos para el dolor de jaspreet con demasiada frecuencia. Hable con saab mdico si est tomando medicamentos ms de 2 boyer a la semana para aliviar el dolor de jaspreet. Blanche demasiados analgsicos puede provocar ms clair de jaspreet. Estos se denominan clair de jaspreet por uso excesivo de medicamentos. Para prevenir las migraas Lleva un diario de tus clair de jaspreet para que puedas identificar qu los desencadena. Evitar los desencadenantes puede ayudarte a prevenirlos. Registra cundo comenz cada dolor de jaspreet, cunto dur y carbonation equipment tender fue. Anota cualquier otro sntoma que hayas tenido junto con el dolor de jaspreet, arie nuseas, luces intermitentes o manchas oscuras, o sensibilidad a la samantha brillante o a los ruidos chuckie. Anota si el dolor de jaspreet se produjo cerca de tu perodo. Haz stef lista de todo lo que podra breonna desencadenado el dolor de jaspreet. Los desencadenantes pueden incluir ciertos alimentos (chocolate, queso, vino) u olores, humo, samantha brillante, estrs o falta de sueo. Si saab mdico le cuevas recetado medicamentos para las migraas, tmelos segn las i ndicaciones. Puede blanche medicamentos solo cuando le d migraa y medicamentos que tome todo el tiempo para ayudar a prevenir las migraas. Si saab mdico le cuevas recetado un medicamento para cuando le duele la jaspreet, tmelo ante la primera seal de migraa, a menos que le haya dado otras instrucciones. Si saab mdico le cuevas recetado medicamentos para prevenir las migraas, tmelos exactamente arie se lo indiquen. Llame a saab mdico si darren que tiene un problema con saab medicamento. Busque formas saludables de lidiar con el estrs. Las migraas son ms comunes arturo o inmediatamente despus de perodos estresantes. Intente encontrar formas de reducir el estrs, arie practicar la atencin plena o ejercicios de respiracin profunda. Duerma haim y fiona ejercicio, lisa tenga cuidado de no esforzarse demasiado arturo el ejercicio, ya que puede provocarle dolor de jaspreet. Siga un horario regular para comer. Evite los alimentos y las bebidas que suelen desencadenar migraas, arie el chocolate, el alcohol (especialmente el vino tinto y el oporto), el aspartamo, el glutamato monosdico (GMS) y algunos aditivos presentes en los alimentos (arie los perritos calientes, el tocino, los embutidos, los quesos curados y los encurtidos). Limite la cafena. No tome demasiado caf, t o refrescos, lisa no deje de blanche cafena de repente, ya que tambin puede provocarle migraas. No fume ni permita que otras personas fumen cerca de usted. Si necesita ayuda para dejar de fumar, hable con saab mdico sobre programas y medicamentos para kaleb ar de fumar. Estos pueden aumentar kita probabilidades de dejar de fumar para siempre. Si est tomando pldoras anticonceptivas o terapia hormonal, hable con saab mdico sobre si emily son las causas de kita migraas. Cundo debes pedir ayuda? Llame al 911 en cualquier momento en que considere que puede necesitar atencin de emergencia. Por ejemplo, llame si: Tiene sntomas de un accidente cerebrovascular, que pueden incluir: Entumecimiento repentino, parlisis o debilidad en la suly, el brazo o la pierna, especialmente en un solo lado del cuerpo. Cambios repentinos en la visin. Dificultad repentina para hablar. Confusin repentina o dificultad para comprender afirmaciones simples. Problemas repentinos con la marcha o el equilibrio. Un dolor de jaspreet repentino y sam que es diferente a los clair de jaspreet anteriores. Llame a saab mdico ahora o busque atencin mdica inmediata si: Tienes fiebre y el asia rgido. Tu dolor de jaspreet empeora mucho. Preste atencin a los cambios en saab john y asegrese de comunicarse con saab mdico si: Kita clair de jaspreet empeoran, ocurren con ms frecuencia o cambian de alguna manera. Tienes nuevos sntomas. Tu orville se ve alterada por tus clair de jaspreet. Por ejemplo, a menudo faltas al trabajo, a la escuela o a otras actividades. No mejoras arie esperabas Crditos para la migraa: instrucciones de cuidado Actualizado al: 3 de diciembre 2023 Autor: Personal de [employer] Junta de revisin clnica Toda la educacin de [employer] es revisada por un equipo que incluye mdicos, enfermeras, profesionales avanzados, dietistas registrados y otros profesionales de la john. Comments MDM: 38-year-old female presents with headache. No focal neurological symptoms. Neuro exam is benign. Pt is nontoxic. VSS. CT head negative for acute process. Based on history and normal neurological exam I have low suspicion for intracranial tumor, intracranial bleed, meningitis, temporal arteritis, glaucoma, CO poisoning. Most likely patient has benign headache, recommend rest, hydration, and OTC pain control. - I reviewed the following notes from the pt's past medical encounters: N/A The following tests were ordered, and results were reviewed by me: (See diagnostic results section) The following test were independently interpreted by me: N/A Additional information was gathered from interviewing the following independent historians: N/A I reviewed and agreed with the following test results read by other providers: CT head I discussed treatments and results with patient Decision regarding hospitalization or escalation of hospital level of care: R isks and benefits of admission for further treatment of patient's condition was considered however due to patient's stable condition patient will be discharged to follow up closely or return to care for worsening of condition or inability to follow up. Critical Care Note Critical Care Time?: No Stability Stability form required: No Heart Score Heart Score: Heart Score Response (Comments) Value History N/A 0 EKG N/A 0 Age N/A 0 Risk Factors N/A 0 Troponin N/A 0 Total 0 I personally scribed for RONY DELATORRE MD ([email or web address]) on 11/12/24 at 22:35. Electronically submitted by Albin Lee ([email or web address]). RONY DELATORRE MD Nov 12, 2024 22:35
--- NOTE | 2024-11-12 22:36 | DVH ---
EXAM: CT HEAD WITHOUT CONTRAST INDICATION: Severe, new onset headache TECHNIQUE: CT of the head without intravenous contrast. Radiation Dose Information: CT Dose: CTDI volume is 52.14 mGy. Dose-length product is 923.38 mGy*cm The dose indicators for CT are the volume Computed Tomography (CT) Dose Index (CTDIvol) and the Dose Length Product (DLP), and are measured in units of mGy and mGy-cm, respectively. These indicators are not patient dose, but values generated from the CT scanner acquisition factors. The report includes radiation exposure data for exposures received during this examination. COMPARISON: CT HEAD WITHOUT CONTRAST on DOS: 07/17/24, CT NECK W WO CONTRAST on DOS: 07/17/24 FINDINGS: There is no evidence of acute intracranial hemorrhage, extra-axial collection, mass effect, midline s hift, herniation or hydrocephalus. The ventricles, sulci and cisterns are age appropriate. The venegas-white differentiation is intact. Patchy periventricular and subcortical white matter hypoattenuation is nonspecific but may be related to small vessel ischemic disease. The visualized paranasal sinuses and mastoid air cells are clear. The surrounding soft tissues and osseous structures are unremarkable. IMPRESSION: 1. No acute intracranial abnormality.
[2024-11-12] MEDS: diphenhdrAMINE HCL 50 MG/1 ML VL IV ONE (22:39)
[2024-11-12] MEDS: KETOROLAC TROMETH 30 MG/ML 1ML VIAL IV ONE (22:39)
[2024-11-12] MEDS: METOCLOPRAMIDE HCL 5MG/ml INJ 2ml VIAL IV ONE (22:40)
[2024-11-12] MEDS: ACETAMINOPHEN 325 MG TAB PO ONE (22:41)
[2024-11-13 01:09] VITALS: BP 126/91; PULSE 81; RESP 16; TEMP 98.3; O2SAT 98
== END 2024-11-13 01:09 | disposition home or self-care (01) ==
LOC: ER 21:06
DX: R51.9 Headache, unspecified (principal); Z88.1 Allergy status to other antibiotic agents; Z98.890 Other specified postprocedural states; Z79.899 Other long term (current) drug therapy
CPT/HCPCS: 70450; 96361; 96374; 96375; 99285; J1200; J1885; J2765; J7030